=== PATIENT | female | born 1975 | race Caucasian/White ===

== ENCOUNTER → 2017-11-06 | Outpatient (CLI) | payer OTHER | LOC: MC.RAD 08:00 | DX: Z12.31 Encounter for screening mammogram for malignant neoplasm of breast (principal) ==

== ENCOUNTER → 2018-11-25 | Outpatient (CLI) | payer OTHER | LOC: MC.RAD 08:20 | DX: Z12.31 Encounter for screening mammogram for malignant neoplasm of breast (principal) ==

== ENCOUNTER → 2019-12-30 | Outpatient (CLI) | payer OTHER | LOC: MC.RAD 14:30 | DX: Z12.31 Encounter for screening mammogram for malignant neoplasm of breast (principal) ==

== ENCOUNTER 2020-04-26 09:08 | Emergency (ER) | payer OTHER ==
[~2020-04-26] VITALS: Ht 172.7 cm; Wt 102.3 kg
[2020-04-26] MEDS ORDERED: SYNTHROID 0.10.15 MG PO (09:27)
[2020-04-26] MEDS ORDERED: LO LOESTRIN FE1 TAB PO (09:27)
[2020-04-26] MEDS ORDERED: ANUSOL HC CREAM30 GM TP (09:57)
[2020-04-26 10:08] VITALS: BP 145/106; PULSE 76; TEMP 98.5
== END 2020-04-26 10:09 | disposition home or self-care (01) ==
LOC: COL.ER 09:08
DX: K62.89 Other specified diseases of anus and rectum (principal); K64.5 Perianal venous thrombosis; E89.0 Postprocedural hypothyroidism; Z79.890 Hormone replacement therapy

== ENCOUNTER → 2021-01-01 | Outpatient (CLI) | payer OTHER ==
[~2021-01-01] MED LIST: ANUSOL HC CREAM30 GM TP; LO LOESTRIN FE1 TAB PO; SYNTHROID 0.10.15 MG PO
== END ==
LOC: MC.RAD 08:13
DX: Z12.31 Encounter for screening mammogram for malignant neoplasm of breast (principal)